=== PATIENT | male | born 1955 | race Native Hawaiian/Other Pacific Islander ===

== ENCOUNTER 2020-09-16 13:28 | Emergency (ER) | payer OTHER ==
[~2020-09-16] VITALS: Ht 162.6 cm; Wt 97.5 kg
--- NOTE | 2020-09-16 13:32 | NUR ---
PATIENT WHEELCHAIR ASSISTED TO BED 4.
[2020-09-16 13:33] VITALS: BP 165/100
--- NOTE | 2020-09-16 13:35 | NUR ---
65 y/o M BIB family with c/c Right foot pain and swelling x 1 week. Patient A&OX4, wheelchair assisted, reports reaching over for an item and falling. Patient landed on right knee and began experiencing R foot swelling pain that persisted. Patient reports 6/10, throbbing/swelling/constant, non-radiating pain. Patient states no LOC during fall. +Swelling, redness noted to Right foot. +CMS +Limited ROM of foot/ankle sensation intact, patient reports tingling to right foot. Patient denies any medications today. BP elevated 165/100, SpO2 98% on room air HR 87. Bed locked in lowest position, side rails x 1, call light in reach. PMH: HTN, DM, HLD Meds: Insulin AM/PM, atorvastatin, losartan NKA Sx: Denies
--- NOTE | 2020-09-16 14:12 | NUR ---
QUAN Mancera is evaluating patient at bedside.
[2020-09-16] MEDS ORDERED: ACETAMINOPHEN EXTRA STRENGTH 500 MG TAB PO ONE (14:15)
[2020-09-16] MEDS ORDERED: ACETAMINOPHEN EXTRA STRENGTH 500 MG TAB ONE (14:19)
--- NOTE | 2020-09-16 14:30 | NUR ---
RAD at bedside.
--- NOTE | 2020-09-16 14:45 | NUR ---
Patient reports positive relief from pain; states 4/10 at this time.
[2020-09-16] MEDS ORDERED: NAPR-54 PO ×2 (15:25→15:40)
--- NOTE | 2020-09-16 15:28 | NUR ---
QUAN Mancera is reevalutaing patient at bedside.
[2020-09-16 15:30] VITALS: BP 162/86
== END 2020-09-16 15:30 | disposition home or self-care (01) ==
LOC: MED 13:28
DX: S80.11XA Contusion of right lower leg, initial encounter (principal); E11.9 Type 2 diabetes mellitus without complications; I10 Essential (primary) hypertension; E78.5 Hyperlipidemia, unspecified; Z79.899 Other long term (current) drug therapy; W19.XXXA Unspecified fall, initial encounter; Y93.89 Activity, other specified; Y92.89 Other specified places as the place of occurrence of the external cause; Y99.8 Other external cause status
CPT/HCPCS: 73562; 73610; 73630; 99284